=== PATIENT | female | born 1975 | race Caucasian/White ===

== ENCOUNTER → 2019-12-09 | Outpatient (CLI) | payer OTHER ==
[~2019-12-09] MED LIST: METHACHOLINE KIT (J7674) INH ONE
--- NOTE | 2019-12-09 08:30 | PFTRPT ---
Height: 62.50 Inches Weight: 218.00 Lbs BSA: 1.99 Diagnosis: R05 DATE OF PROCEDURE: 12/09/2019 ORDERED BY: Dr. Warren INTERPRETATION: Study of excellent technical quality. Under protocol, methacholine was administered. At a dose of 0.25 mg (1.375 CDUs), a 40% decline in the FEV1 was noted. PC of 0.06 is significant. Flow rates did return to baseline post bronchodilator administration. IMPRESSION: Positive methacholine challenge study. MTDD
== END ==
LOC: M CARPUL 07:36
PROVIDERS: ATTEND Family Medicine
DX: R05 Cough (principal)
CPT/HCPCS: 95070; J7674

== ENCOUNTER → 2022-02-03 | Outpatient (CLI) | payer OTHER ==
[~2022-02-03] MED LIST changes: +CROM5.2S4; +CYCL-707 PO; +DILT120C89 PO; +DILT1CAP5 PO; +ERGO500029 PO; +FURO40TA2 PO; +HYDR-3911 PO; +IPRA0.00 INH; +LOSA100T45 PO; -METHACHOLINE KIT (J7674) INH ONE; +MONT10TA97 PO; +POTA-151 PO; +PROAAER10 INH; +SETL1TAB PO
== END ==
LOC: M LABSMTC 10:16
PROVIDERS: ATTEND Anesthesiology
DX: Z01.812 Encounter for preprocedural laboratory examination (principal); Z20.822 Contact with and (suspected) exposure to COVID-19

== ENCOUNTER 2022-02-08 06:18 | Day surgery (SDC) | payer OTHER ==
[~2022-02-08] VITALS: Ht 157.5 cm; Wt 104.7 kg
[~2022-02-08 06:18] MED LIST changes: +HEPARIN SOD (PORCINE) 5000UNITS/ML 1ML VIAL/SYRINGE SQ ONE; +LIDOCAINE 1% MDV 20ML VIAL SQ PRN; +LR 1,000 ML IV ONE; +ceFAZolin SOD 2 GM in IV 1 EA IV ONE
[2022-02-08] MEDS ORDERED: MIDAZOLAM INJ 2MG/2ML VIAL (J2250 PER 1MG) As Ordered ONE (07:10)
[2022-02-08] MEDS ORDERED: fentaNYL 100 MCG/2 ML INJECTION As Ordered ONE ×2 (07:10→07:53)
[2022-02-08] MEDS ORDERED: LIDOCAINE 2% 100MG/5ML SDV (FOR ANES.) As Ordered ONE (07:11)
[2022-02-08] MEDS ORDERED: propofoL 200 MG/20 ML VIAL As Ordered ONE (07:11)
[2022-02-08] MEDS ORDERED: dexameTHASONE 4 MG/ML 1ML VIAL (J1100 PER 1MG) As Ordered ONE (07:11)
[2022-02-08] MEDS ORDERED: ONDANSETRON 4MG/2ML VIAL As Ordered ONE (07:11)
[2022-02-08] MEDS ORDERED: LIDOCAINE 1% SDV 30ML VIAL As Ordered ONE (07:18)
[2022-02-08] MEDS ORDERED: BUPIVACAINE HCL 0.25% 30ML VIAL As Ordered ONE (07:18)
[2022-02-08] MEDS ORDERED: PHENYLephrine 500MCG 5ML (100MCG/ML) SYRINGE As Ordered ONE (08:12)
[2022-02-08] MEDS ORDERED: ePHEDrine SULFATE 25 MG/5 ML(5MG/ML) SYRINGE As Ordered ONE ×2 (08:14→08:38)
[2022-02-08] MEDS ORDERED: ROXI1TAB2 PO (09:17)
[2022-02-08] MEDS ORDERED: ONDANSETRON 4MG/2ML VIAL IV PRN (09:20)
[2022-02-08] MEDS ORDERED: oxyCODONE 5MG TAB PO PRN (09:20)
[2022-02-08] MEDS ORDERED: HYDROMORPHONE HCL 0.5 MG/ 0.5 ML SYRINGE (J1170 PER 1) IV PRN ×2 (09:20)
[2022-02-08] MEDS ORDERED: MEPERIDINE INJ 25 MG/ML VIAL (J2175) IV PRN (09:20)
[2022-02-08] MEDS ORDERED: PROMETHAZINE 25MG/ML 1ML VIAL IV PRN (09:20)
[2022-02-08 10:36] VITALS: BP 121/70
== END 2022-02-08 10:36 | disposition home or self-care (01) ==
LOC: M SDC 06:18
PROVIDERS: ATTEND Surgery
DX: D24.2 Benign neoplasm of left breast (principal); I10 Essential (primary) hypertension; F41.9 Anxiety disorder, unspecified; F32.9 Major depressive disorder, single episode, unspecified; J44.9 Chronic obstructive pulmonary disease, unspecified; Z79.899 Other long term (current) drug therapy
CPT/HCPCS: 19120; 36415; 81025; 86850; 86900; 86901; 88307; J0690; J1100; J1644; J2250; J2370; J2405; J3010

== ENCOUNTER → 2023-12-24 | Day surgery (SDC) | payer OTHER ==
[~2023-12-24] VITALS: Ht 157.5 cm; Wt 99.8 kg
[~2023-12-24] MED LIST changes: +ACETAMINOPHEN 1000MG 100ML IV BAG As Ordered ONE; +ALBUTEROL 6.7GM INHALER **FOR ANES. CART/OMNICELL ONLY As Ordered ONE; +AMLO1TAB25 PO; -DILT1CAP5 PO; +DILT240C41 PO; -HEPARIN SOD (PORCINE) 5000UNITS/ML 1ML VIAL/SYRINGE SQ ONE; -HYDR-3911 PO; +HYDR50TA46 PO; +HYDROMORPHONE HCL 0.5 MG/ 0.5 ML SYRINGE IV PRN; +HYDROmorphone HCL 2MG/ML 1ML VIAL As Ordered ONE; +INDOCYANINE GREEN 25MG VIAL (IC-GREEN) As Ordered ONE; -LIDOCAINE 1% MDV 20ML VIAL SQ PRN; +LIDOCAINE 1% SDV 5ML VIAL SC PRN; +LIDOCAINE 2% 100MG/5ML SDV (FOR ANES.) As Ordered ONE; -LOSA100T45 PO; +LOSA100T46 PO; -LR 1,000 ML IV ONE; +LR 1,000 ML IV SCH; +MIDAZOLAM INJ 2MG/2ML VIAL As Ordered ONE; +OMEP40CA5 PO; +ONDANSETRON 4MG 2ML VIAL As Ordered ONE; +ROCURONIUM BROMIDE 50MG/5ML VIAL As Ordered ONE; +ROXI1TAB2 PO; -ceFAZolin SOD 2 GM in IV 1 EA IV ONE; +fentaNYL 100 MCG/2 ML INJECTION As Ordered ONE; +fentaNYL 100 MCG/2 ML INJECTION IV PRN; +propofoL 200 MG/20 ML VIAL As Ordered ONE
[2023-12-24] MEDS: INDOCYANINE GREEN 25MG VIAL (IC-GREEN) IV ONE (11:15)
[2023-12-24] MEDS: ceFAZolin SOD 2 GM in IV 1 EA IV ONE (11:15)
[2023-12-24] MEDS: HEPARIN SOD (PORCINE) 5000UNITS/ML 1ML VIAL/SYRINGE SQ ONE (11:34)
[2023-12-24] MEDS: ONDANSETRON 4MG 2ML VIAL IV PRN (13:30)
[2023-12-24] MEDS: oxyCODONE 5MG TAB PO PRN (13:31)
[2023-12-24 14:45] VITALS: BP 169/90; TEMP 97.7; O2SAT 94
== END | disposition home or self-care (01) ==
LOC: M SDC 10:40
PROVIDERS: ATTEND Surgery
DX: K80.10 Calculus of gallbladder with chronic cholecystitis without obstruction (principal); I10 Essential (primary) hypertension; R60.0 Localized edema; K21.9 Gastro-esophageal reflux disease without esophagitis; F41.9 Anxiety disorder, unspecified; F32.A Depression, unspecified; J44.9 Chronic obstructive pulmonary disease, unspecified; Z79.899 Other long term (current) drug therapy
CPT/HCPCS: 47562; 81025; 88304; J0131; J0665; J0690; J1100; J1170; J2250; J2405; J3010; Q9968; S2900

== ENCOUNTER → 2025-05-28 | Outpatient (CLI) | payer OTHER ==
[~2025-05-28] MED LIST changes: -ACETAMINOPHEN 1000MG 100ML IV BAG As Ordered ONE; -ALBUTEROL 6.7GM INHALER **FOR ANES. CART/OMNICELL ONLY As Ordered ONE; -HYDROMORPHONE HCL 0.5 MG/ 0.5 ML SYRINGE IV PRN; -HYDROmorphone HCL 2MG/ML 1ML VIAL As Ordered ONE; -INDOCYANINE GREEN 25MG VIAL (IC-GREEN) As Ordered ONE; -LIDOCAINE 1% SDV 5ML VIAL SC PRN; -LIDOCAINE 2% 100MG/5ML SDV (FOR ANES.) As Ordered ONE; -LR 1,000 ML IV SCH; -MIDAZOLAM INJ 2MG/2ML VIAL As Ordered ONE; -ONDANSETRON 4MG 2ML VIAL As Ordered ONE; -ROCURONIUM BROMIDE 50MG/5ML VIAL As Ordered ONE; -fentaNYL 100 MCG/2 ML INJECTION As Ordered ONE; -fentaNYL 100 MCG/2 ML INJECTION IV PRN; -propofoL 200 MG/20 ML VIAL As Ordered ONE
== END ==
LOC: M CARPUL 08:31
PROVIDERS: ATTEND Physician Assistant
DX: R94.31 Abnormal electrocardiogram [ECG] [EKG] (principal)